=== PATIENT | female | born 1995 | race Caucasian/White ===

== ENCOUNTER 2022-02-20 19:30 | Emergency (ER) | payer OTHER ==
[~2022-02-20] VITALS: Ht 152.4 cm; Wt 67.7 kg
[~2022-02-20 19:30] MED LIST: NOCURR
[2022-02-20] MEDS: ACETAMINOPHEN 500 MG TABLET PO ONE (20:20)
[2022-02-20 20:21] LABS: COVID AG,FIA SOURCE NASOPHARYNGEAL
[2022-02-20 20:23] LABS: BASOPHILS % (AUTO) 0.5 % (0.0-2.0); EOSINOPHILS % (AUTO) 0.7 % (1.0-6.0); HEMATOCRIT 39.4 % (36-46); HEMOGLOBIN 12.7 g/dL (12.0-16.0); LYMPHOCYTES # (AUTO) 3.3 K/uL (1.0-4.8); LYMPHOCYTES % (AUTO) 25.1 % (22.0-44.0); MEAN CORPUSCULAR HEMOGLOBIN 28.4 pg (26.0-34.0); MEAN CORPUSCULAR HGB CONC 32.3 G/dL (31.0-37.0); MEAN CORPUSCULAR VOLUME 88 fL (80-100); MONOCYTES # (AUTO) 1.1 K/uL (0.1-1.0); NEUTROPHILS # (AUTO) 8.7 K/uL (1.8-7.7); NEUTROPHILS % (AUTO) 65.7 % (40.0-70.0); PLATELET COUNT (AUTO) 170 K/uL (150-450); RED BLOOD CELL COUNT(AUTO) 4.48 MIL/uL (4.00-5.20); RED CELL DISTRIBUTION WIDTH 13.7 % (11.5-14.5)
[2022-02-20 20:24] LABS: APPEARANCE,URINE CLEAR (CLEAR); BILIRUBIN,URINE NEGATIVE (NEGATIVE); GLUCOSE, URINE (UA) NEGATIVE (NEGATIVE); KETONES,URINE NEGATIVE (NEGATIVE); LEUKOCYTE ESTERASE ,URINE NEGATIVE (NEGATIVE); NITRATE,URINE NEGATIVE (NEGATIVE); OCCULT BLOOD,URINE NEGATIVE (NEGATIVE); PROTEIN,URINE TRACE mg/dL (NEGATIVE); SPECIFIC GRAVITIY, URINE 1.031 (1.003-1.030)
[2022-02-20 20:32] LABS: ANION GAP 9 mmol/L (8-16); CARBON DIOXIDE 27 mmol/L (22-29); CHLORIDE 103 mmol/L (98-107); GLUCOSE,RANDOM 95 mg/dL (70-110); POTASSIUM 4.2 mmol/L (3.5-5.1); SODIUM SERUM 139 mmol/L (136-145); UREA NITROGEN, BLOOD 16 mg/dL (7-18)
[2022-02-20 20:33] LABS: GLOMERULAR FILTR. RATE CALC > 60 mL/min (>60)
[2022-02-20 20:41] LABS: INFLUENZA TYPE A NEGATIVE FOR TYPE A (NEGATIVE); INFLUENZA TYPE B NEGATIVE FOR TYPE B (NEGATIVE)
[2022-02-20] MEDS: SODIUM CHLORIDE 0.9% 1,000 ML IV ONE (20:43)
[2022-02-20 20:45] LABS: ALANINE AMINOTRANSFERASE 50 U/L (12-78); ALBUMIN 3.8 g/dL (3.4-5.0); ALKALINE PHOSPHATASE 82 U/L (46-116); ASPARTATE AMINOTRANSFERASE 30 U/L (15-37); BILIRUBIN,TOTAL 0.2 mg/dL (0.1-1.0); HCG,QUANTITATIVE < 1 mIU/mL (0-6); LIPASE 113 U/L (73-393); TOTAL PROTEIN, SERUM 7.6 g/dL (6.4-8.2)
[2022-02-20] MEDS: ONDANSETRON HCL 4 MG/2 ML VIAL IVP ONE (20:46)
[2022-02-20] MEDS: KETOROLAC TROMETHAMINE 30 MG/ML VIAL IVP ONE (20:46)
[2022-02-20] MEDS ORDERED: ONDA-104 PO (20:52)
[2022-02-20 21:58] VITALS: BP 134/85
== END 2022-02-20 23:39 | disposition home or self-care (01) ==
LOC: EMS 20:09
DX: R51.9 Headache, unspecified (principal); R11.2 Nausea with vomiting, unspecified; Z20.822 Contact with and (suspected) exposure to COVID-19
CPT/HCPCS: 99284; 96374; 96361; 96375; 87426; 80053; 81003; 83690; 84702; 84703; 85025; 87804; 36415; J1885; J2405; J7030

== ENCOUNTER 2022-10-06 10:42 | Emergency (ER) | payer OTHER ==
[~2022-10-06] VITALS: Ht 154.9 cm; Wt 62.3 kg
[~2022-10-06 10:42] MED LIST changes: +ONDA-104 PO
[2022-10-06 10:55] VITALS: TEMP 98.3
[2022-10-06] MEDS ORDERED: APIX2.5T PO (11:06)
[2022-10-06] MEDS ORDERED: FERR-72 PO (12:35)
[2022-10-06] MEDS ORDERED: APIX5TAB PO (12:35)
[2022-10-06] MEDS ORDERED: SENN-277 PO (12:35)
[2022-10-06] MEDS ORDERED: DOCU-352 PO (12:42)
[2022-10-06] MEDS ORDERED: NAPR-1193 PO (12:42)
[2022-10-06] MEDS ORDERED: HYDR-4072 PO (12:42)
[2022-10-06] MEDS ORDERED: NAPROXEN 250 MG TABLET PO ONE (12:45)
[2022-10-06] MEDS ORDERED: HYDROCODONE/ACETAMINOPHEN 5-325 MG TABLET PO ONE (12:45)
[2022-10-06 13:05] VITALS: BP 118/73; PULSE 71; RESP 18
== END 2022-10-06 13:10 | disposition home or self-care (01) ==
LOC: EMS 10:52
DX: S59.902A Unspecified injury of left elbow, initial encounter (principal); Y08.89XA Assault by other specified means, initial encounter; Y93.89 Activity, other specified; Y92.29 Other specified public building as the place of occurrence of the external cause; Y99.8 Other external cause status
CPT/HCPCS: 99283

== ENCOUNTER 2023-02-24 17:31 | Emergency (ER) | payer OTHER ==
[~2023-02-24] VITALS: Ht 152.4 cm; Wt 65.9 kg
[~2023-02-24 17:31] MED LIST changes: +APIX5TAB PO; +DOCU-412 PO; +FERR-72 PO; +HYDR-4072 PO; +NAPR-1193 PO; -NOCURR; -ONDA-104 PO; +SENN-277 PO
[2023-02-24 19:37] LABS: BASOPHILS % (AUTO) 0.7 % (0.0-2.0); EOSINOPHILS % (AUTO) 1.5 % (1.0-6.0); HEMOGLOBIN 13.1 g/dL (12.0-16.0); LYMPHOCYTES # (AUTO) 4.1 K/uL (1.0-4.8); LYMPHOCYTES % (AUTO) 41.4 % (22.0-44.0); MEAN CORPUSCULAR HEMOGLOBIN 27.9 pg (26.0-34.0); MEAN CORPUSCULAR HGB CONC 32.6 G/dL (31.0-37.0); MEAN CORPUSCULAR VOLUME 85 fL (80-100); MONOCYTES # (AUTO) 0.7 K/uL (0.1-1.0); MONOCYTES % (AUTO) 7.1 % (2.0-9.0); NEUTROPHILS # (AUTO) 4.8 K/uL (1.8-7.7); NEUTROPHILS % (AUTO) 49.3 % (40.0-70.0); PLATELET COUNT (AUTO) 221 K/uL (150-450); RED BLOOD CELL COUNT(AUTO) 4.69 MIL/uL (4.00-5.20); RED CELL DISTRIBUTION WIDTH 13.7 % (11.5-14.5); WHITE BLOOD COUNT (AUTO) 9.8 K/uL (4.5-11.0)
[2023-02-24 19:46] LABS: ANION GAP 10 mmol/L (8-16); CALCIUM, TOTAL 9.1 mg/dL (8.8-10.5); CARBON DIOXIDE 28 mmol/L (22-29); CHLORIDE 106 mmol/L (98-107); CREATININE 0.54 mg/dL (0.60-1.30); GLOMERULAR FILTR. RATE CALC > 60 mL/min (>60); GLUCOSE,RANDOM 100 mg/dL (70-110); POTASSIUM 4.4 mmol/L (3.5-5.1); SODIUM SERUM 144 mmol/L (136-145); UREA NITROGEN, BLOOD 14 mg/dL (7-18)
[2023-02-24 19:53] LABS: ALANINE AMINOTRANSFERASE 27 U/L (12-78); ALBUMIN 3.8 g/dL (3.4-5.0); ALKALINE PHOSPHATASE 79 U/L (46-116); ASPARTATE AMINOTRANSFERASE 19 U/L (15-37); BILIRUBIN,TOTAL 0.1 mg/dL (0.1-1.0); TOTAL PROTEIN, SERUM 8.3 g/dL (6.4-8.2)
[2023-02-24 19:54] LABS: TROPONIN I-HIGH SENSITIVITY 5 ng/L (<51)
[2023-02-24 20:30] VITALS: BP 119/78; PULSE 79; RESP 18; TEMP 98.3
== END 2023-02-24 21:00 | disposition home or self-care (01) ==
LOC: EMS 17:38
DX: R07.89 Other chest pain (principal); Z86.711 Personal history of pulmonary embolism; Z98.890 Other specified postprocedural states
CPT/HCPCS: 71045; 80053; 83690; 84484; 84703; 85025; 85379; 85610; 85730; 93005; 99285; 36415-L1; 36415-TC